=== PATIENT | male | born 1985 | race American Indian/Alaskan Native ===

== ENCOUNTER 2017-11-14 14:48 | Emergency (ER) | payer MEDICAID ==
[2017-11-14 14:52] VITALS: BMI 25.8
[2017-11-14 14:55] VITALS: BP 132/83; PULSE 60; RESP 18; TEMP 98.3; O2SAT 96
--- NOTE | 2017-11-14 15:10 | C.PDOC ---
History Of Present Illness Patient with history of asthma reports cough for few days and needs cough medicine. He reports he ran out of promethazine with codeine. He has his inhaler. Patient asking for Rx. Denies any fever, chest pain or SOB. Time Seen by Provider: 11/14/17 15:02 Chief Complaint (Nursing): Cough, Cold, Congestion History Per: Patient History/Exam Limitations: no limitations Onset/Duration Of Symptoms: Days Current Symptoms Are (Timing): Still Present Associated Symptoms: Cough Past Medical History Reviewed: Historical Data, Nursing Documentation, Vital Signs Vital Signs: Last Vital Signs Temp 98.3 F 11/14/17 14:52 Pulse 60 11/14/17 14:52 Resp 18 11/14/17 14:52 BP 132/83 11/14/17 14:52 Pulse Ox 96 11/14/17 14:52 - Medical History PMH: Asthma Family History: States: Unknown Family Hx - Social History Hx Alcohol Use: No Hx Substance Use: No - Immunization History Hx Tetanus Toxoid Vaccination: No Hx Influenza Vaccination: No Hx Pneumococcal Vaccination: No Review Of Systems Constitutional: Negative for: Fever Respiratory: Positive for: Cough. Negative for: Shortness of Breath Gastrointestinal: Negative for: Abdominal Pain Musculoskeletal: Positive for: Back Pain Physical Exam - Physical Exam Appears: Non-toxic, No Acute Distress Skin: Warm, Dry Head: Atraumatic, Normacephalic Eye(s): bilateral: Normal Inspection, EOMI Ear(s): Bilateral: Normal Nose: Normal Oral Mucosa: Moist Throat: Normal, No Erythema, No Exudate Neck: Normal ROM Chest: Symmetrical Cardiovascular: Rhythm Regular, No Murmur Respiratory: Normal Breath Sounds, No Wheezing Extremity: Bilateral: Atraumatic, Normal Color And Temperature, Normal ROM Neurological/Psych: Oriented x3, Normal Speech Gait: Steady ED Course And Treatment O2 Sat by Pulse Oximetry: 96 Pulse Ox Interpretation: Abnormal Medical Decision Making Medical Decision Making: Patient here for cough and asking for specific cough medicine. Patient has no wheezing or in respiratory distress. As a courtesy will give prescription for cough medicine. The patient asked to have refills. I explain to patient this medication has codeine and is normally not refilled and we do not give refills from the Emergency room. Advise he follow up with his doctor Disposition Counseled Patient/Family Regarding: Diagnosis, Need For Followup, Rx Given - Disposition Referrals: [facility] [Outside] [facility] [Outside] Disposition: HOME/ ROUTINE Disposition Time: 15:09 Condition: GOOD Additional Instructions: You may call import export manager service for any assistance to find primary care doctor [phone]. Prescriptions: Promethazine HCl/Codeine [Prometh-Codein 6.25-10 mg/5 ml] 5 ml PO Q8 #2 oz Instructions: Cough, Adult (DC) Forms: [employer] (Yi) - POA Present On Arrival: None - Clinical Impression Clinical Impression: Cough, Medicine refill
== END 2017-11-14 15:27 | disposition home or self-care (01) ==
LOC: C.ER 14:48
DX: Z76.0 Encounter for issue of repeat prescription (principal); R05 Cough